=== PATIENT | female | born 1935 | race Caucasian/White ===

== ENCOUNTER 2021-11-16 15:56 | Inpatient (IN) | payer OTHER ==
[~2021-11-16] VITALS: Ht 157.5 cm; Wt 83.0 kg
[2021-11-16 15:57] VITALS: BP 144/88
[2021-11-16 17:21] LABS: ABSOLUTE EOSINOPHILS 0.2 thou/uL (0.0-0.7); ABSOLUTE LYMPHOCYTES 1.2 thou/uL (0.8-5.3); ABSOLUTE MONOCYTES 1.1 thou/uL (0.0-1.2); ABSOLUTE NEUTROPHILS 6.7 thou/uL (1.6-8.1); BASOPHILS 0.5 %; EOSINOPHILS 2.4 %; HEMATOCRIT 30.8 % (37.0-47.0); HEMOGLOBIN 10.1 gm/dL (12.0-15.0); MCH 27.7 pg (26.0-34.0); MCHC 32.7 g/dL (28.0-37.0); MCV 84.8 fL (80.0-100.0); MONOCYTES 12.1 %; MPV 6.3 fl. (7.2-11.1); NUCLEATED RBCS 0 /100WBC; PLATELET COUNT* 346 thou/uL (150-400); RBC 3.63 mil/uL (4.20-5.00); RDW-CV 17.5 % (10.5-14.5); WBC 9.3 thou/uL (4.0-11.0)
[2021-11-16 17:31] LABS: CALCIUM 8.3 mg/dL (8.5-10.1); POTASSIUM 3.9 mmol/L (3.5-5.1)
[2021-11-16 17:36] LABS: ALBUMIN 3.1 g/dL (3.4-5.0); TOTAL BILIRUBIN 0.9 mg/dL (<0.1-1.0); TOTAL PROTEIN 6.2 g/dL (6.4-8.2)
[2021-11-16] MEDS ORDERED: LEVO-T75 MCG PO (18:43)
[2021-11-16] MEDS ORDERED: FOSAMAX PLUS D1 EAC1 PO (18:43)
[2021-11-16] MEDS ORDERED: PLAVIX 75 MG TA75 MG PO (18:44)
[2021-11-16] MEDS ORDERED: FUROSEMIDE 40 M40 MG PO (18:44)
[2021-11-16] MEDS ORDERED: PROTONIX40 M4 PO (18:44)
[2021-11-16] MEDS ORDERED: ELIQUIS5 M1 PO (18:45)
[2021-11-16] MEDS ORDERED: MAGNESIUM400 MG PO (18:45)
[2021-11-16] MEDS ORDERED: NAMENDA 10 MG T10 MG PO (18:45)
[2021-11-16] MEDS ORDERED: GLIMEPIRIDE4 MG PO (18:46)
[2021-11-16] MEDS ORDERED: KLOR-CON M2020 MEQ PO (18:47)
[2021-11-16] MEDS ORDERED: PACERONE200 MG PO (18:47)
[2021-11-16] MEDS ORDERED: LIPITOR40 MG PO (18:47)
[2021-11-16 20:20] VITALS: BP 175/77
[2021-11-16 20:45] VITALS: BP 162/81
[2021-11-17 02:02] VITALS: BP 106/59
--- NOTE | 2021-11-17 04:03 | NUR ---
ASSUMED CARE OF PATIENT 11/16/21 AT APPROX 2030. PT A&OX4, FORGEFUL. VSS ON ROOM AIR. IV SALINE LOCKED. PHYSICIAN CONTACTED AT 2100 FOR PRN PAIN MEDICATION; ORDERS GIVEN FOR MORPINE 2MG AND PERCOCET 1TAB Q4H (SEE ORDERS FOR DETAILS). PRN PAIN MED REQUESTED AND GIVEN ORDERED. MED/SURG STATUS. PT REPOSTIONED Q2H, SLEEPING WELL, WILL CONTINUET MONITOR.
[2021-11-17 08:00] VITALS: BP 92/56
--- NOTE | 2021-11-17 11:58 | EKG ---
[place] [address] ELECTROCARDIOGRAM REPORT Name: MANISHA RAMOS Room: [place] [address] ADM IN [facility]#: [id number] Admission: 11/16/21 Attend Phys: Dylan Galvan Discharge: Date of : 35 Date of Service: 11/16/21 1858 Report #: [id number] THIS REPORT FOR: //name// [facility] ED Test Date: 2021-11-16 Test Time: 18:58:11 Pat Name: MANISHA RAMOS Department: Room: [facility] Gender: F Machine Shop Supervisor: BXIONG : 1935 Requested By: Julio Williamson Order Number: [id number] MD: Shon Stanton Measurements Intervals [place] Rate: 70 P: NE: 364 QRS: 55 QRSD: 108 T: 56 QT: 457 QTc: 494 Interpretive Statements Atrial-paced complexes Prolonged NE interval Borderline prolonged QT interval No previous ECG available for comparison Electronically Signed On 11-17-2021 11:57:53 SALES AND PRODUCTION MANAGER by Shon Stanton [email or web address] <ELECTRONICALLY SIGNED> By: Shon Stanton MD, [facility] 11/17/21 1157 1858 1858 Shon Stanton MD, [facility] /EPI
[2021-11-17 14:09] VITALS: BP 108/57
[2021-11-17 19:43] VITALS: BP 147/71
[2021-11-18 00:04] VITALS: BP 122/61
--- NOTE | 2021-11-18 04:43 | NUR ---
PT A&OX4, VSS ON ROOM AIR, IV SALINE LOCKED, MED/SURG STATUS. PT REPOSITIONED Q2H. PRN PAIN MEDS REQUESTED, PO & IV PRN PAIN MED GIVEN ORDERED. PT SLEEPING, WILL CONTINUE TO MONITOR.
[2021-11-18 05:15] LABS: HEMATOCRIT 28.3 % (37.0-47.0); HEMOGLOBIN 9.5 gm/dL (12.0-15.0); MCHC 33.5 g/dL (28.0-37.0); MCV 83.7 fL (80.0-100.0); MPV 6.3 fl. (7.2-11.1); RBC 3.39 mil/uL (4.20-5.00); RDW-CV 17.1 % (10.5-14.5); WBC 8.3 thou/uL (4.0-11.0)
[2021-11-18 05:43] LABS: CALCIUM 7.9 mg/dL (8.5-10.1); CREATININE 2.5 mg/dL (0.6-1.3); POTASSIUM 3.6 mmol/L (3.5-5.1)
[2021-11-18 08:00] VITALS: BP 147/60
[2021-11-18 13:17] LABS: CALCIUM 8.1 mg/dL (8.5-10.1); CREATININE 2.6 mg/dL (0.6-1.3); POTASSIUM 3.7 mmol/L (3.5-5.1)
[2021-11-18 17:04] VITALS: BP 129/60
[2021-11-18 21:00] VITALS: BP 137/65
[2021-11-19 00:37] VITALS: BP 109/52
[2021-11-19 02:06] LABS: GLYCOHEMOGLOBIN (HGB A1C) 7.9 % (4.8-5.6)
--- NOTE | 2021-11-19 05:03 | NUR ---
ASSUMED CARE AT 1920. ALERT AND ORIENTED X 2-3. PLEASANT AND FORGETFUL. PAIN MEDS GIVEN FOR RIGHT SHOULDER AND RIB PAIN. ASSIST X 2 PERSON. UP TO BSC. SLEPT MOST OF THE NIGHT. CALL LIGHT IN REACH.
[2021-11-19 08:00] VITALS: BP 172/61
[2021-11-19 09:39] VITALS: BP 172/61
--- NOTE | 2021-11-19 09:52 | NUR ---
PLAN OF CARE: PLAN FOR THE PT TO D/C TO SNF AT [facility] PENDING INSURANCE AUTH. CM INFORMED PT AND ATTEMPTED TO CONTACT HER NIECE NOVA TO INFORM OF THE SAME. CM LEFT A VOICEMAIL ON NOVA'S PHONE. CM AWAITING A RETURN CALL FROM [facility] ADMISSIONS TO CONFIRM INSURANCE AUTH AND TIME OF W/C VAN TRANSPORT. CM WILL REMAIN AVAILABLE TO ASSIST AND FOLLOW NEEDED.
[2021-11-19] MEDS ORDERED: LIDODERM1 EACH TOP (13:14)
--- NOTE | 2021-11-19 16:32 | NUR ---
PATIENT DISCHARGED TO SNF AT 1630 PATIENT LEFT VIA TRANSPORTION WITH ALL PERSONAL BELONGINGS, PATIENT VS STABLE AND PATIENT IN STABLE CONDITION AT TIME OF DISCHARGE.
== END 2021-11-19 16:40 | DRG 177 ==
LOC: M.ERS 15:56 → M.TBA-ER 17:34 → M.2W 17:34
PROVIDERS: Family Medicine; ADMIT Internal Medicine; ATTEND Internal Medicine
DX: J69.0 Pneumonitis due to inhalation of food and vomit (principal); N17.0 Acute kidney failure with tubular necrosis; S22.41XA Multiple fractures of ribs, right side, initial encounter for closed fracture; Z20.822 Contact with and (suspected) exposure to COVID-19; K21.9 Gastro-esophageal reflux disease without esophagitis; R73.9 Hyperglycemia, unspecified; I48.91 Unspecified atrial fibrillation; Z79.01 Long term (current) use of anticoagulants; F03.90 Unspecified dementia, unspecified severity, without behavioral disturbance, psychotic disturbance, mood disturbance, and anxiety; W18.39XA Other fall on same level, initial encounter; Y93.89 Activity, other specified; Y92.89 Other specified places as the place of occurrence of the external cause; Y99.8 Other external cause status; I25.10 Atherosclerotic heart disease of native coronary artery without angina pectoris; M81.8 Other osteoporosis without current pathological fracture; Z88.8 Allergy status to other drugs, medicaments and biological substances

== ENCOUNTER 2021-12-02 14:30 | Inpatient (IN) | payer OTHER ==
[~2021-12-02] VITALS: Ht 152.4 cm; Wt 81.2 kg
[~2021-12-02 14:30] MED LIST: ELIQUIS5 M1 PO; FOSAMAX PLUS D1 EAC1 PO; FUROSEMIDE 40 M40 MG PO; GLIMEPIRIDE4 MG PO; KLOR-CON M2020 MEQ PO; LEVO-T75 MCG PO; LIDODERM1 EACH TOP; LIPITOR40 MG PO; MAGNESIUM400 MG PO; NAMENDA 10 MG T10 MG PO; PACERONE200 MG PO; PLAVIX 75 MG TA75 MG PO; PROTONIX40 M4 PO
[2021-12-02 14:38] VITALS: BP 147/66
[2021-12-02 14:50] LABS: ABSOLUTE BASOPHILS 0.1 thou/uL (0.0-0.2); ABSOLUTE EOSINOPHILS 0.2 thou/uL (0.0-0.7); ABSOLUTE LYMPHOCYTES 1.2 thou/uL (0.8-5.3); ABSOLUTE MONOCYTES 0.8 thou/uL (0.0-1.2); ABSOLUTE NEUTROPHILS 4.7 thou/uL (1.6-8.1); EOSINOPHILS 3.4 %; HEMOGLOBIN 7.8 gm/dL (12.0-15.0); LYMPHOCYTES 16.7 %; MCH 26.9 pg (26.0-34.0); MCHC 32.5 g/dL (28.0-37.0); MCV 82.9 fL (80.0-100.0); MPV 5.9 fl. (7.2-11.1); NUCLEATED RBCS 0 /100WBC; PLATELET COUNT* 428 thou/uL (150-400); POLYS 67.9 %; RBC 2.89 mil/uL (4.20-5.00); RDW-CV 18.3 % (10.5-14.5)
[2021-12-02] MEDS ORDERED: MIRALAX119 GM PO (14:57)
[2021-12-02] MEDS ORDERED: LIDOCAINE PAIN1 EACH TOP (14:58)
[2021-12-02] MEDS ORDERED: TRAMADOL 50 MG50 MG PO (14:58)
[2021-12-02] MEDS ORDERED: RESTASIS1 EACH OPHTHALMIC (14:58)
[2021-12-02] MEDS ORDERED: SALINE NASAL M126 ML (14:58)
[2021-12-02] MEDS ORDERED: FEOSOL325 M1 PO (14:59)
[2021-12-02] MEDS ORDERED: ONDANSETRON HCL4 M2 PO (14:59)
[2021-12-02 15:06] LABS: CALCIUM 7.5 mg/dL (8.5-10.1); CREATININE 1.6 mg/dL (0.6-1.3); POTASSIUM 3.1 mmol/L (3.5-5.1)
--- NOTE | 2021-12-02 15:07 | EKG ---
[place] [address] ELECTROCARDIOGRAM REPORT Name: MANISHA RAMOS Room: [facility]#: [id number] Admission: 12/02/21 Attend Phys: Discharge: Date of : 35 Date of Service: 12/02/21 1444 Report #: [id number] THIS REPORT FOR: //name// [facility] ED Test Date: 2021-12-02 Test Time: 14:44:26 Pat Name: MANISHA RAMOS Department: Room: Gender: Salesperson [employer]: TO : 1935 Requested By: Julio Williamson Order Number: [id number] MD: Sergey Kimbrough Measurements Intervals [place] Rate: 70 P: DC: 235 QRS: 14 QRSD: 102 T: 53 QT: 529 QTc: 571 Interpretive Statements Atrial-paced complexes Prolonged DC interval Minimal ST depression, anterolateral leads Prolonged QT interval Baseline wander in lead(s) V6 Compared to ECG 11/16/2021 18:58:11 no change Electronically Signed On 12-02-2021 15:07:07 INFECTION CONTROL PRACTITIONER by Sergey Kimbrough [email or web address] <ELECTRONICALLY SIGNED> By: Sergey Kimbrough MD, [facility] 12/02/21 1507 1444 1444 Sergey Kimbrough MD, [facility] /EPI
[2021-12-02 15:08] LABS: APTT 29.4 Seconds (25.0-31.3); INR 1.2; PROTIME 12.3 Seconds (9.20-11.50)
[2021-12-02 15:16] LABS: TOTAL BILIRUBIN 0.8 mg/dL (<0.1-1.0); TOTAL PROTEIN 5.8 g/dL (6.4-8.2)
[2021-12-02 16:34] VITALS: BP 147/66
[2021-12-02 17:00] VITALS: BP 142/50
[2021-12-02 20:00] VITALS: BP 142/52
== END 2021-12-03 | DRG 377 ==
LOC: M.ERS 14:30 → M.TBA-ER 15:27 → M.2W 16:40
PROVIDERS: Family Medicine; ADMIT Internal Medicine; ATTEND Internal Medicine
PROC: 0DBN8ZZ Excision of Sigmoid Colon, Via Natural or Artificial Opening Endoscopic (ICD-10-PCS; principal; 2021-12-03)
PROC: 0DJ08ZZ Inspection of Upper Intestinal Tract, Via Natural or Artificial Opening Endoscopic (ICD-10-PCS; 2021-12-03)
DX: K92.2 Gastrointestinal hemorrhage, unspecified (principal); J15.6 Pneumonia due to other Gram-negative bacteria; N17.9 Acute kidney failure, unspecified; I50.32 Chronic diastolic (congestive) heart failure; I13.0 Hypertensive heart and chronic kidney disease with heart failure and stage 1 through stage 4 chronic kidney disease, or unspecified chronic kidney disease; E78.5 Hyperlipidemia, unspecified; F03.90 Unspecified dementia, unspecified severity, without behavioral disturbance, psychotic disturbance, mood disturbance, and anxiety; E03.9 Hypothyroidism, unspecified; E78.00 Pure hypercholesterolemia, unspecified; D64.9 Anemia, unspecified; K64.4 Residual hemorrhoidal skin tags; I25.10 Atherosclerotic heart disease of native coronary artery without angina pectoris; K44.9 Diaphragmatic hernia without obstruction or gangrene; E87.6 Hypokalemia; K59.00 Constipation, unspecified; E11.22 Type 2 diabetes mellitus with diabetic chronic kidney disease; Z66 Do not resuscitate; I48.91 Unspecified atrial fibrillation; K63.5 Polyp of colon; N18.30 Chronic kidney disease, stage 3 unspecified; Z95.0 Presence of cardiac pacemaker; Z88.8 Allergy status to other drugs, medicaments and biological substances; Z20.822 Contact with and (suspected) exposure to COVID-19